=== PATIENT | female | born 1995 | race Caucasian/White ===

== ENCOUNTER → 2025-01-01 17:35 | Outpatient (REF) | payer OTHER, SELFPAY | LOC: MRI 3T 17:35 | PROVIDERS: ATTENDING PHYSICIAN Nurse Practitioner Family; FAMILY PHYSICIAN Nurse Practitioner Family | DX: G35 Multiple sclerosis (principal) | CPT/HCPCS: 70553; 72156; A9575 ==

== ENCOUNTER → 2025-01-03 17:22 | Outpatient (REF) | payer OTHER, SELFPAY | LOC: MRI 3T 17:22 | PROVIDERS: ATTENDING PHYSICIAN Nurse Practitioner Family; FAMILY PHYSICIAN Nurse Practitioner Family | DX: G35 Multiple sclerosis (principal) | CPT/HCPCS: 72157; A9575 ==